=== PATIENT | female | born 1975 | race Two or more races ===

== ENCOUNTER 2021-08-02 15:16 | Emergency (ER) | payer MEDICAID, OTHER ==
[~2021-08-02] VITALS: Ht 167.6 cm; Wt 61.2 kg
[2021-08-02] MEDS ORDERED: GASTROGRAFIN 30 ML SOL XX ONE (16:00)
[2021-08-02] MEDS ORDERED: OMNIPAQUE ORAL SOLN 500ml 12mg/ml PO ONE (16:47)
[2021-08-02 18:30] LABS: Basophils # (auto) 0.1 10 ^3/uL (0-0.2); Basophils % (auto) 0.5 % (0.0-2.0); Eosinophils # (auto) 0.1 10 ^3/uL (0-0.8); Eosinophils % (auto) 0.4 % (0.0-7.0); Hematocrit 41.3 % (36.0-46.0); Hemoglobin 13.9 g/dL (12.2-16.2); Lymphocytes # (auto) 1.9 10 ^3/uL (0.4-5.4); Lymphocytes % (auto) 8.3 % (10.0-50.0); Mean Corpuscular Hgb Conc. 33.7 g/dL (32.0-36.0); Monocytes # (auto) 0.6 10 ^3/uL (0-1.3); Monocytes % (auto) 2.8 % (0.0-12.0); Neutrophils # (auto) 19.9 10 ^3/uL (1.6-8.6); Red Blood Cells 4.35 10^6/uL (4.0-5.20); Red Cell Distribution Width 12.2 % (11.8-14.3); White Blood Cell 22.6 10^3/uL (4.4-10.8)
[2021-08-02 18:46] LABS: Albumin 3.9 g/dL (3.4-5.0); Calcium 9.1 mg/dL (8.5-10.1)
[2021-08-02 18:50] LABS: BUN/Creatinine Ratio 21.7; Bilirubin, Total 0.6 mg/dL (0.2-1.0); Total Protein 7.7 g/dL (6.4-8.2)
[2021-08-02 21:36] VITALS: BP 142/82
[2021-08-02] MEDS ORDERED: MAGIC MOUTHWASH 55 ML SUSP MT SCH (22:00)
== END 2021-08-02 22:45 | disposition home or self-care (01) ==
LOC: ER 15:16 → EDBD 15:16 → ER 22:45
DX: R55 Syncope and collapse (principal); M54.2 Cervicalgia
CPT/HCPCS: 36415; 70490; 71250; 80053; 84484; 84702; 85025; 93005